=== PATIENT | male | born 1970 | race Two or more races ===

== ENCOUNTER 2020-07-25 00:08 | Emergency (ER) | payer SELFPAY ==
[~2020-07-25] VITALS: Ht 167.6 cm; Wt 104.3 kg
--- NOTE | 2020-07-25 00:12 | Emergency Room Report ---
History of Present Illness General Chief Complaint: To Be Triaged Source: Patient, EMS Present Illness HPI This is a 49-year-old male with no past medical history presents with chief complaint of acute onset of dizziness and nausea and vomiting. Onset about 30 minutes prior to arrival. He said he got dizzy all of a sudden. Said the room was spinning. He has multiple episode of vomiting. He said he felt drunk even though he has not had any alcohol. movements made it worse. Sitting still made it better. Vomiting is nonbloody nonbilious. No diarrhea. No focal deficit. Allergies: Coded Allergies: No Known Allergies (Unverified , 07/25/20) Patient History Past Medical History: none, see triage record, old chart reviewed Past Surgical History: none Pertinent Family History: none Social History: Denies: smoking Immunizations: other Reviewed Nursing Documentation: PMH: Agreed; PSxH: Agreed Review of Systems Eye: Denies: eye pain, blurred vision ENT: Denies: ear pain, nose congestion, throat swelling Respiratory: Denies: cough, shortness of breath Cardiovascular: Denies: chest pain, palpitations Gastrointestinal: Reports: nausea, vomiting; Denies: abdominal pain, diarrhea Musculoskeletal: Denies: back pain, joint pain Skin: Denies: rash Neurological: Denies: headache, numbness Endocrine: Denies: increased thirst, increased urine Hematologic/Lymphatic: Denies: easy bruising All Other Systems: negative except mentioned in HPI Physical Exam Vitals unremarkable Sp02 EP Interpretation: reviewed, normal General Appearance: well appearing, no apparent distress, alert Head: normocephalic, atraumatic Eyes: bilateral eye PERRL, bilateral eye EOMI ENT: hearing grossly normal, normal pharynx Neck: full range of motion, supple, no meningismus Respiratory: chest non-tender, lungs clear, normal breath sounds Cardiovascular #1: regular rate, rhythm, no murmur Gastrointestinal: normal bowel sounds, non tender, no mass, no organomegaly, no bruit, non-distended Musculoskeletal: back normal, normal range of motion, gait/station normal Psychiatric: mood/affect normal Medical Decision Making Diagnostic Impression: Primary Impression: Dizziness Additional Impression: Vertigo ER Course Patient presents with dizziness. This sounds like vertigo in nature. CT head negative. There is no evidence of any bleed or meningitis or neoplastic process. He felt better now. He does not have diabetes but does have elevated glucose. Told to follow-up with his doctor for recheck. Will discharge home. CT/MRI/US Diagnostic Results CT/MRI/US Diagnostic Results : Imaging Test Ordered: CT head Impression Negative per radiologist Status: improved Disposition: HOME, SELF-CARE Condition: Stable Scripts Meclizine Hcl* (MECLIZINE*) 25 Mg Tablet 25 MG ORAL THREE TIMES A DAY, #30 TAB Prov: Yunier Sanchez MD 07/25/20 Additional Instructions: Follow-up with your doctor in 7 days. Your blood sugar is elevated here. Have it rechecked with your doctor. Return if symptoms worsen. Yunier Sanchez MD Jul 25, 2020 00:12
[2020-07-25 00:32] VITALS: BP 138/74
--- NOTE | 2020-07-25 00:37 | NUR ---
ED Nurse Note: patient brought in by ambulaance complaining of weakness, nausea, and abdominal pain patient is AOx4, vitals stable patient
--- NOTE | 2020-07-25 00:41 | NUR ---
ED Nurse Note: patient blood specimens sent to lab 20G in R hand
--- NOTE | 2020-07-25 00:52 | NUR ---
ED Nurse Note: pt to ct
[2020-07-25 01:07] LABS: BASOPHILS % (AUTO) 0.7 % (0.0-2.0); EOSINOPHILS % (AUTO) 0.9 % (0.0-3.0); HEMATOCRIT 43.4 % (42.0-52.0); HEMOGLOBIN 14.8 G/DL (14.2-18.0); LYMPHOCYTES % (AUTO) 18.8 % (20.0-45.0); MEAN CORPUSCULAR VOLUME 82 FL (80-99); MONOCYTES % (AUTO) 4.9 % (1.0-10.0); NEUTROPHILS % (AUTO) 74.8 % (45.0-75.0); PLATELET COUNT 291 K/UL (150-450); RED BLOOD COUNT 5.29 M/UL (4.70-6.10); RED CELL DISTRIBUTION WIDTH 11.9 % (11.6-14.8); WHITE BLOOD COUNT 13.6 K/UL (4.8-10.8)
--- NOTE | 2020-07-25 01:13 | Diagnostic Imaging Report ---
CT head without contrast History: Dizziness TECHNIQUE: Multiple, contiguous 2.5 mm axial cuts of the brain are obtained from the posterior fossa to the cranial vault. Sagittal and coronal reformatted images provided. No IV contrast is administered. FINDINGS: No intracranial hemorrhage, abnormal intra- or extra-axial collections or parenchymal lesions are seen. The shape and configuration of the cortical sulci, basal cisterns and ventricles are within normal limits. The ontiveros-white differentiation is preserved. No evidence of mass effect, midline shift, or edema. The osseous structures are unremarkable. The visualized portions of the paranasal sinuses are clear. IMPRESSION: Normal non-contrast CT scan of the head.
--- NOTE | 2020-07-25 01:15 | NUR ---
ED Nurse Note: return from ct
[2020-07-25 01:17] LABS: ANION GAP 11 mmol/L (5-15); BLOOD UREA NITROGEN 19 mg/dL (7-18); CALCIUM 8.9 MG/DL (8.5-10.1); CARBON DIOXIDE 25 MMOL/L (21-32); CHLORIDE 105 MMOL/L (98-107); CREATININE 0.9 MG/DL (0.55-1.30); POTASSIUM 3.2 MMOL/L (3.5-5.1); SODIUM 141 MMOL/L (136-145)
[2020-07-25 01:22] LABS: ALANINE AMINOTRANSFERASE 45 U/L (12-78); ALBUMIN/GLOBULIN RATIO 1.1 (1.0-2.7); ALKALINE PHOSPHATASE 67 U/L (46-116); ASPARTATE AMINO TRANSFERASE 21 U/L (15-37); BILIRUBIN,TOTAL 0.5 MG/DL (0.2-1.0)
[2020-07-25] MEDS ORDERED: MECLIZINE HCL25 MG ORAL (02:10)
--- NOTE | 2020-07-25 03:11 | NUR ---
ER DISCHARGE NOTE: Patient is cleared to be discharged per ERMD, pt is aox4, on room air, with stable vital signs. pt was given dc and prescription instructions, pt was able to verbalize understanding, pt id band and iv site removed without complications. pt is able to ambulate with steady gait. pt took all belongings.
== END 2020-07-25 03:11 | disposition home or self-care (01) ==
LOC: EMR 00:27
DX: R42 Dizziness and giddiness (principal); R11.2 Nausea with vomiting, unspecified
CPT/HCPCS: 36415; 70450; 80053; 85025; 96361; 96374; 99284; J2405; J7030